=== PATIENT | female | born 1990 | race Caucasian/White ===

== ENCOUNTER 2020-02-29 05:45 | Inpatient (IN) | payer OTHER ==
[~2020-02-29] VITALS: Ht 154.9 cm; Wt 83.2 kg
[2020-02-29 05:57] VITALS: Ht 154.9 cm; Wt 83.2 kg
[2020-02-29 07:46] LABS: BASOPHIL % 0.1 % (0-2); PLATELET COUNT 225 x10^3mcL (130-400); RED CELL DISTRIBUTION WIDTH 13.4 % (11.5-14.5)
[2020-02-29 08:18] LABS: ALBUMIN 3.7 g/dL (3.4-5.0); ALKALINE PHOSPHATASE 72 U/L (46-116); ALT/SGPT 49 U/L (14-59); AMYLASE 53 U/L (25-115); AST/SGOT 26 U/L (15-37); BILIRUBIN TOTAL 0.39 mg/dL (0.20-1.00); CALCIUM 8.4 mg/dL (8.5-10.1); CARBON DIOXIDE 25.4 mmol/L (21-32); CHLORIDE SERUM 104 mmol/L (98-107); CREATININE SERUM 1.1 mg/dL (0.6-1.0); GFR1 > 60 mL/min; GLUCOSE SERUM 105 mg/dL (74-106); LIPASE 74 IU/L (73-393); SODIUM SERUM 139 mmol/L (136-145); TOTAL PROTEIN, SERUM 7.2 g/dL (6.4-8.2)
[2020-02-29 10:17] LABS: microscopic required? YES; urine erythrocyte TRACE (NEGATIVE)
[2020-02-29 15:10] VITALS: BP 118/75
== END 2020-02-29 12:54 | disposition home or self-care (01) | DRG 661 ==
LOC: ED 05:45 → MU 09:46
PROVIDERS: Emergency Medicine; Urology; ADMIT Hospitalist; ATTEND Hospitalist
PROC: 0T778DZ Dilation of Left Ureter with Intraluminal Device, Via Natural or Artificial Opening Endoscopic (ICD-10-PCS; 2020-02-29)
PROC: BT1F1ZZ Fluoroscopy of Left Kidney, Ureter and Bladder using Low Osmolar Contrast (ICD-10-PCS; principal; 2020-02-29 11:30)
DX: N13.30 Unspecified hydronephrosis (principal); Z79.899 Other long term (current) drug therapy
CPT/HCPCS: C1769; C2625; G0378; J0610; J0690; J1885; J2250; J2270; J2405; J2765; J3010; Q9967